=== PATIENT | male | born 1990 | race Two or more races ===

== ENCOUNTER 2019-04-02 18:58 | Emergency (ER) | payer OTHER ==
[~2019-04-02] VITALS: Ht 177.8 cm; Wt 85.3 kg
[2019-04-02 19:05] VITALS: Ht 177.8 cm; Wt 85.3 kg
[2019-04-02 20:01] VITALS: BP 159/98
== END 2019-04-02 20:01 | disposition home or self-care (01) ==
LOC: ED 18:58
DX: R03.0 Elevated blood-pressure reading, without diagnosis of hypertension (principal); F41.9 Anxiety disorder, unspecified
CPT/HCPCS: 99406